=== PATIENT | male | born 1955 | race Caucasian/White ===

== ENCOUNTER 2018-07-14 10:57 | Day surgery (SDC) | payer BC ==
[~2018-07-14 10:57] MED LIST: ACETAMINOPHEN 1,000 MG/100 ML BTL IVPB ONE; CLINDAMYCIN 600MG/50ML PREMIX 600 MG/50 ML BAG IVPB ONE
[2018-07-14] MEDS ORDERED: FENTANYL PF 100MCG/2ML VIAL IV ONE (10:58)
[2018-07-14] MEDS ORDERED: MIDAZOLAM HCL 2MG/2ML VIAL IV ONE (10:58)
[2018-07-14] MEDS ORDERED: PROPOFOL 10 MG/ML VIAL IV ONE (10:58)
[2018-07-14] MEDS ORDERED: LIDOCAINE 2% MDV (20MG/ML) 20ML VIAL IV ONE (10:58)
[2018-07-14] MEDS ORDERED: RINGERS SOLUTION,LACTATED 1,000 ML IV ONE ×2 (11:41→14:55)
--- NOTE | 2018-08-04 08:40 | Operative Note ---
DATE OF SURGERY: 07/14/2018 PREOPERATIVE DIAGNOSIS: Carpal tunnel syndrome, left. POSTOPERATIVE DIAGNOSIS: Carpal tunnel syndrome, left. OPERATION: Carpal tunnel release. SURGEON: Adryan Pickard MD ANESTHESIA: Local with sedation. COMPLICATIONS: None. ESTIMATED BLOOD LOSS: Minimal. OPERATIVE FINDINGS: Tight carpal tunnel. INDICATION: A 62-year-old male who has had persistent chronic carpal tunnel symptoms for several years. Failed nonoperative treatment. Scheduled for carpal tunnel release. I explained all risks and benefits in detail for the diagnosis and procedure including but not limited to infection, nerve injury, vessel injury, persistent pain, stiffness, numbness, tingling in the wrist, recurrence of symptoms, and need for further procedures. All his questions were answered. Rehab and healing course were outlined. He agreed to proceed. PROCEDURE: The patient brought to the OR, placed in the supine position, prepped for surgery. Sedation was given. The left upper extremity was prepped and draped in sterile fashion. Prepped again with Chloraprep after it was draped. Intraoperative timeout was performed. Next, a midline approach was marked. It was made an incision lupe just ulnar to the thenar crease and infiltrated with 0.5% Marcaine with epinephrine, 1% lidocaine with epinephrine. Skin and subcutaneous tissue dissected down to the superficial ulnar fascia. It was incised longitudinally. The distal edge of the transverse carpal ligament was identified. Slater dilator was inserted gently into the carpal tunnel to isolate the median nerve out of the way and release the ligament from distal to proximal; completed its release proximally flexing the wrist with curved Metzenbaum scissors under direct visualization to the flexor retinaculum. The ligament was completely released, the nerve inspected and intact. Irrigation copiously. Closed with 3-0 nylon. Sterile dressing applied. Tolerated the procedure well. No intraoperative complications. Sponge and blade counts correct. Recovery room stable, neurovascularly intact. Discharged as an outpatient. Follow up in 2 weeks. VILMA
== END 2018-07-14 14:54 | disposition home or self-care (01) ==
LOC: SUR 10:57
PROVIDERS: ATTEND Orthopaedic Surgery
DX: G56.02 Carpal tunnel syndrome, left upper limb (principal)
CPT/HCPCS: J7120